=== PATIENT | male | born 1995 | race Two or more races ===

== ENCOUNTER 2017-10-12 22:54 | Emergency (ER) | payer OTHER ==
[~2017-10-12] VITALS: Ht 177.8 cm; Wt 85.7 kg
[2017-10-12 23:00] VITALS: Ht 177.8 cm; Wt 85.7 kg
[2017-10-13 00:22] VITALS: BP 112/68
== END 2017-10-13 00:22 | disposition home or self-care (01) ==
LOC: ED 22:54
DX: L50.0 Allergic urticaria (principal)
CPT/HCPCS: J2930; J3490

== ENCOUNTER 2018-10-07 23:08 | Emergency (ER) | payer OTHER ==
[~2018-10-07] VITALS: Ht 177.8 cm; Wt 95.3 kg
[2018-10-07 23:13] VITALS: Ht 177.8 cm; Wt 95.3 kg
[2018-10-08 01:20] VITALS: BP 130/71
== END 2018-10-08 01:31 | disposition home or self-care (01) ==
LOC: ED 23:08
DX: T78.2XXA Anaphylactic shock, unspecified, initial encounter (principal); T78.1XXA Other adverse food reactions, not elsewhere classified, initial encounter; F90.9 Attention-deficit hyperactivity disorder, unspecified type; X58.XXXA Exposure to other specified factors, initial encounter
CPT/HCPCS: J0171; J7512; Q0163